=== PATIENT | male | born 1945 | race Caucasian/White ===

== ENCOUNTER 2016-10-30 07:19 | Outpatient (CLI) | payer MEDICARE, OTHER ==
[2016-10-30 11:40] LABS: CALCIUM 10.2 mg/dL (8.5-10.3); CREATININE 1.4 mg/dL (0.6-1.2); POTASSIUM 4.4 mmol/L (3.5-5.0)
== END 2016-10-30 07:20 | disposition home or self-care (01) ==
LOC: LAB.F 07:19
PROVIDERS: ATTEND Internal Medicine
DX: I12.9 Hypertensive chronic kidney disease with stage 1 through stage 4 chronic kidney disease, or unspecified chronic kidney disease (principal); E66.9 Obesity, unspecified; M25.562 Pain in left knee; Z12.11 Encounter for screening for malignant neoplasm of colon
CPT/HCPCS: 36415; 80048; 82043; 82570

== ENCOUNTER 2017-11-10 07:19 | Outpatient (CLI) | payer MEDICARE, OTHER | END 2017-11-10 07:20 | disposition home or self-care (01) | LOC: LAB.F 07:19 | PROVIDERS: ATTEND Internal Medicine | DX: Z00.00 Encounter for general adult medical examination without abnormal findings (principal); N18.3 Chronic kidney disease, stage 3 (moderate); R73.01 Impaired fasting glucose; E66.9 Obesity, unspecified; I10 Essential (primary) hypertension; Z12.11 Encounter for screening for malignant neoplasm of colon | CPT/HCPCS: 82270 ==

== ENCOUNTER 2018-05-21 08:44 | Day surgery (SDC) | payer MEDICARE, OTHER ==
[~2018-05-21 08:44] MED LIST: BRIMONIDINE 0.2% OPHTH DROPS 5 ML ONE; BSS/LIDOCAINE/EPINEPHRINE 1 ML SYRINGE ONE; CYCLOPENTOLATE 1% OPHTH DROPS 2 ML ONE; KETOROLAC 0.45% OPHTH DROPS ONE; PHENYLEPHRINE 2.5% OPHTH 2 ML DROPS ONE; PROPARACAINE 0.5% OPHTH DROPS 15 ML ONE; TIMOLOL 0.5% OPHTH DROPS ONE; TRIAMCIN/MOXIFLOX OPHTHALMIC 0.6 ML VIAL IO ONE; VANCOMYCIN OPHTHALMI 8MG/0.8ML 8 MG/0.8 ML SYRINGE IO ONE
[2018-05-21] MEDS ORDERED: CYCLOPENTOLATE 1% OPHTH DROPS 2 ML RIGHTEYE ONE (09:10)
[2018-05-21] MEDS ORDERED: PROPARACAINE 0.5% OPHTH DROPS 15 ML RIGHTEYE ONE (09:10)
[2018-05-21] MEDS ORDERED: KETOROLAC 0.45% OPHTH DROPS RIGHTEYE ONE (09:10)
[2018-05-21] MEDS ORDERED: PHENYLEPHRINE 2.5% OPHTH 2 ML DROPS RIGHTEYE ONE (09:10)
[2018-05-21] MEDS ORDERED: LACTATED RINGERS 500 ML IV ONE (09:17)
--- NOTE | 2018-05-21 09:35 | ANESTHESIA ---
Pre-Anesthesia VS, & Labs - Diagnosis nuclear sclerotic cataract right eye - Procedure cataract extraction with probable intraocular lens implant right eye Vital Signs: Temp Pulse Resp BP Pulse Ox 36.6 C 79 18 136/70 H 100 05/21/18 08:56 05/21/18 08:56 05/21/18 08:56 05/21/18 08:56 05/21/18 08:56 Height 5 ft 7 in Weight (kg) 85 kg - NPO >8 hours Last Fluid Intake: Chewed tobacco at 0430 Home Medications and Allergies Lisinopril 5 mg PO DAILY 08/14/13 Allergies/Adverse Reactions: Allergies Allergy/AdvReac Type Severity Reaction Status Date / Time No Known Drug Allergies Allergy Verified 08/14/13 18:09 Anes History & Medical History - Anesthetic History Family history of Anesthesia Complications: Denies Family history of Malignant Hyperthermia: Denies - Medical History Cardiovascular: reports: Hypertension Pulmonary: reports: None Gastrointestinal: reports: None Urinary: reports: None, Kidney stones (history of kidney stones) Neuro: reports: None Musculoskeletal: reports: None Endocrine/Autoimmune: reports: None Skin: reports: None Smoking Status: Former smoker (quit 5 years ago) Psychosocial: reports: Other (uses chewing tobacco) Exam General: Alert, Oriented x3, Cooperative, No acute distress Dental: Dentures full Upper Mouth Openin Fingerbreadth Neck Mobility: Normal Mallampati classification: II Thyromental Distance: less than 4 cm Respiratory: Lungs clear, Normal breath sounds, No respiratory distress, No accessory muscle use Cardiovascular: Other (Irregular, no murmurs. ECG shows SR with frequent PVC) Mental/Cognitive Status: Alert/Oriented X3, Normal for patient Plan Anesthesia Type: MAC Consent for Procedure(s) Verified and Reviewed: Yes Code Status: Attempt Resuscitation ASA classification: 2-Mild systemic disease Is this case an emergency?: No
[2018-05-21] MEDS ORDERED: MIDAZOLAM 2 MG/2 ML VIAL IVP ONE (10:11)
[2018-05-21] MEDS ORDERED: BRIMONIDINE 0.2% OPHTH DROPS 5 ML OPTH ONE (10:14)
[2018-05-21] MEDS ORDERED: TIMOLOL 0.5% OPHTH DROPS OPTH ONE (10:14)
[2018-05-21] MEDS ORDERED: CHONDR SULF/HYALURONATE SYRINGE IO ONE (10:14)
[2018-05-21] MEDS ORDERED: EPINEPHrine 1 MG/ML AMP IVP ONE (10:14)
[2018-05-21] MEDS ORDERED: BSS/LIDOCAINE/EPINEPHRINE 1 ML SYRINGE IO ONE (10:15)
[2018-05-21] MEDS ORDERED: VANCOMYCIN OPHTHALMI 8MG/0.8ML 8 MG/0.8 ML SYRINGE IO ONE (10:15)
[2018-05-21] MEDS ORDERED: TRIAMCIN/MOXIFLOX OPHTHALMIC 0.6 ML VIAL IO ONE (10:15)
[2018-05-21 10:40] VITALS: BP 135/74
--- NOTE | 2018-05-21 12:01 | OPERATIVE REPORT ---
DATE OF SERVICE: 05/21/2018 Physician: Sunny Whitt MD PREOPERATIVE DIAGNOSIS: Visually significant cataract, right eye. This was his first cataract surge ry. POSTOPERATIVE DIAGNOSIS: Visually significant cataract, right eye. This was his first cataract surg tori. NAME OF PROCEDURE: Phacoemulsification with posterior chamber intraocular lens implant, right eye. SURGEON: Sunny Whitt MD ANESTHESIA: Monitored anesthesia care. COMPLICATIONS: None. OPERATIVE INDICATIONS: This is a 72-year-old man with progressive vision loss in the right eye due t o 3+ nuclear sclerotic cataract. Best corrected visual acuity was 20/60, with glare to 20/80. Indic ations for surgery were difficulty seeing words, closed captions or game scores on TV, difficulty kimberly ding, difficulty driving in low light or at night, difficulty driving at night because of headlights from other vehicles, and difficulty with glare or bright lights in any situation. He was consented a t length concerning risks and benefits of cataract surgery, after which he expressed a desire to proc eed with surgery. OPERATIVE PROCEDURE: The patient was taken to OR #3, and placed under monitored anesthesia care. A surgical timeout was conducted confirming correct patient, correct procedure and correct surgical sit e. He was given topical anesthesia and prepped and draped in usual sterile fashion. The eye was ent ered at the 12 and 9 o'clock positions. Intracameral Shugarcaine was injected into the anterior jeet kala, followed by Viscoat. A continuous-tear curvilinear capsulorrhexis was performed. The nucleus w as hydrodissected and phacoemulsified. The cortex was evacuated using automated infusion and aspirat ion. Provisc was injected in the capsular bag, and a 21.5 diopter intraocular lens inserted in the b ag. Approximately 0.8 mL of a mixture of triamcinolone, moxifloxacin and vancomycin was injected sub conjunctivally in the superior quadrant for infection and inflammation prophylaxis. I and A was used to evacuate the viscoelastic materials. The eye was inflated to physiologic pressure using balanced salt solution, and found to be watertight. The patient was taken from the operating room in good co ndition and given postop instructions. TD: 05/21/2018 10:41
== END 2018-05-21 08:45 | disposition home or self-care (01) ==
LOC: SDS 08:44
PROVIDERS: ATTEND Ophthalmology
PROC: 08RJ3JZ Replacement of Right Lens with Synthetic Substitute, Percutaneous Approach (ICD-10-PCS; principal; 2018-05-21 10:00)
DX: H25.11 Age-related nuclear cataract, right eye (principal); I10 Essential (primary) hypertension; F17.220 Nicotine dependence, chewing tobacco, uncomplicated; Z87.442 Personal history of urinary calculi
CPT/HCPCS: 66984; A9270; J3490; V2632

== ENCOUNTER 2019-01-19 07:48 | Outpatient (CLI) | payer MEDICARE, OTHER ==
[2019-01-19 10:19] LABS: BUN - BLOOD UREA NITROGEN 21 mg/dL (6-20); CALCIUM 9.7 mg/dL (8.5-10.3); CARBON DIOXIDE - CO2 26 mmol/L (21-32); CHLORIDE 106 mmol/L (101-111); CHOLESTEROL 175 mg/dL; CREATININE 1.4 mg/dL (0.6-1.2); GFR - MDRD 50 (>89); GLUCOSE 108 mg/dL (70-100); HDL CHOLESTEROL 35 mg/dL; LDL CHOLESTEROL,CALCULATED 117 mg/dL; LDL/HDL RATIO 3.3 (<3.6); SODIUM 139 mmol/L (135-145); VLDL CHOLESTEROL 23 mg/dL
[2019-01-20 11:40] LABS: HEPATITIS C ANTIBODY NON-REACTIVE (NON-REACTIVE)
== END 2019-01-19 07:49 | disposition home or self-care (01) ==
LOC: LAB.S 07:48
PROVIDERS: ATTEND Internal Medicine
DX: Z00.00 Encounter for general adult medical examination without abnormal findings (principal); I12.9 Hypertensive chronic kidney disease with stage 1 through stage 4 chronic kidney disease, or unspecified chronic kidney disease; N18.3 Chronic kidney disease, stage 3 (moderate); R73.01 Impaired fasting glucose; E66.9 Obesity, unspecified; Z11.59 Encounter for screening for other viral diseases; Z13.6 Encounter for screening for cardiovascular disorders
CPT/HCPCS: 36415; 80048; 80061; 83721; 86803

== ENCOUNTER 2020-01-03 08:02 | Outpatient (CLI) | payer MEDICARE, OTHER ==
[2020-01-03 15:34] LABS: CALCIUM 10.2 mg/dL (8.5-10.3); CREATININE 1.2 mg/dL (0.6-1.2)
== END 2020-01-03 08:03 | disposition home or self-care (01) ==
LOC: LAB.S 08:02
PROVIDERS: ATTEND Internal Medicine
DX: Z00.00 Encounter for general adult medical examination without abnormal findings (principal); I12.9 Hypertensive chronic kidney disease with stage 1 through stage 4 chronic kidney disease, or unspecified chronic kidney disease; N18.30 Chronic kidney disease, stage 3 unspecified; R73.01 Impaired fasting glucose
CPT/HCPCS: 36415; 80048

== ENCOUNTER 2020-03-20 17:14 | Outpatient (CLI) | payer MEDICARE | END 2020-03-20 17:15 | disposition home or self-care (01) | LOC: COV 17:14 | PROVIDERS: ATTEND Ophthalmology | DX: Z01.812 Encounter for preprocedural laboratory examination (principal); Z20.822 Contact with and (suspected) exposure to COVID-19; H25.12 Age-related nuclear cataract, left eye ==

== ENCOUNTER 2020-03-23 08:54 | Day surgery (SDC) | payer MEDICARE ==
[~2020-03-23 08:54] MED LIST changes: -BRIMONIDINE 0.2% OPHTH DROPS 5 ML ONE; -BSS/LIDOCAINE/EPINEPHRINE 1 ML SYRINGE ONE; -CYCLOPENTOLATE 1% OPHTH DROPS 2 ML ONE; -TIMOLOL 0.5% OPHTH DROPS ONE; -TRIAMCIN/MOXIFLOX OPHTHALMIC 0.6 ML VIAL IO ONE; -VANCOMYCIN OPHTHALMI 8MG/0.8ML 8 MG/0.8 ML SYRINGE IO ONE
[2020-03-23] MEDS ORDERED: LACTATED RINGERS 500 ML IV ONE (09:13)
--- NOTE | 2020-03-23 09:25 | ANESTHESIA ---
Pre-Anesthesia VS, & Labs - Diagnosis left eye nuclear sclerotic cataract - Procedure Left eye cataract extraction with IOL implant Vital Signs: Temp Pulse Resp BP Pulse Ox 37 C 85 16 129/75 100 03/23/20 09:03 03/23/20 09:03 03/23/20 09:03 03/23/20 09:03 03/23/20 09:03 Height: 5 ft 8 in Weight (kg): 78.2 kg Body Mass Index: 26.2 BMI Classification: Overweight - NPO >8 hours Home Medications and Allergies NONE Allergies/Adverse Reactions: Allergies Allergy/AdvReac Type Severity Reaction Status Date / Time No Known Drug Allergies Allergy Verified 08/14/13 18:09 Anes History & Medical History - Medical History Cardiovascular: reports: Hypertension, Other (irregular, hx of pvc) Pulmonary: reports: None Gastrointestinal: reports: None Urinary: reports: None, Kidney stones Neuro: reports: None Musculoskeletal: reports: None Endocrine/Autoimmune: reports: None Skin: reports: None Smoking Status: Former smoker (quit 5 years ago. Chews tobacco) Psychosocial: reports: No issues indicated History of Cancer?: No - Surgical History Eyes Ears Nose Throat (EENT): Cataracts Exam General: Alert, Oriented x3, Cooperative, No acute distress, Other (hard of hearing) Dental: Dentures full Upper Mouth Openin Fingerbreadth Neck Mobility: Normal Mallampati classification: III Thyromental Distance: 4-6 cm Mental/Cognitive Status: Alert/Oriented X3, Normal for patient Plan Anesthesia Type: MAC Consent for Procedure(s) Verified and Reviewed: Yes Code Status: Attempt Resuscitation ASA classification: 2-Mild systemic disease Is this case an emergency?: No
[2020-03-23] MEDS ORDERED: MIDAZOLAM 2 MG/2 ML VIAL ONE (10:34)
[2020-03-23] MEDS ORDERED: BRIMONIDINE 0.2% OPHTH DROPS 5 ML OPTH ONE (10:43)
[2020-03-23] MEDS ORDERED: EPINEPHrine 1 MG/ML AMP IR ONE (10:43)
[2020-03-23] MEDS ORDERED: TRIAMCIN/MOXIFLOX OPHTHALMIC 0.6 ML VIAL IO ONE ×2 (10:44→13:27)
[2020-03-23] MEDS ORDERED: VANCOMYCIN OPHTHALMI 8MG/0.8ML 8 MG/0.8 ML SYRINGE IO ONE ×2 (10:44→13:27)
[2020-03-23] MEDS ORDERED: BSS/LIDOCAINE/EPINEPHRINE 1 ML SYRINGE IO ONE (10:44)
[2020-03-23] MEDS ORDERED: TIMOLOL 0.5% OPHTH DROPS OPTH ONE (10:44)
[2020-03-23] MEDS ORDERED: CHONDR SULF/HYALURONATE SYRINGE IO ONE (10:44)
[2020-03-23] MEDS ORDERED: PROPARACAINE 0.5% OPHTH DROPS 15 ML EACHEYE ONE (10:44)
[2020-03-23] MEDS ORDERED: LACTATED RINGERS 400 ML IV ONE (10:55)
[2020-03-23 10:58] VITALS: BP 128/86
--- NOTE | 2020-03-23 11:08 | ANESTHESIA POST OP EVALUATION ---
Anesthesia Post Eval - Post Anesthesia Eval Vitals: Last Vital Signs Temp 36.8 C 03/23/20 10:57 Pulse 81 03/23/20 10:57 Resp 16 03/23/20 10:57 BP 128/86 H 03/23/20 10:57 Pulse Ox 100 03/23/20 10:57 CV Function Including HR & BP: positive: Stable Pain Control: positive: Satisfactory Nausea & Vomiting: positive: Negative Mental Status: positive: Patient Participates Respiratory Status: Airway Patent Hydration Status: Satisfactory Anesthesia Complications: positive: None
[2020-03-23] MEDS ORDERED: KETOROLAC 15 MG/ML VIAL ONE (11:10)
--- NOTE | 2020-03-23 11:13 | OPERATIVE REPORT ---
DATE OF SERVICE: 03/23/2020 Physician: Sunny Whitt MD PREOPERATIVE DIAGNOSIS: Visually significant cataract, left eye. Cataract surgery was performed on his right eye on 05/21/2018. POSTOPERATIVE DIAGNOSIS: Visually significant cataract, left eye. Cataract surgery was performed on his right eye on 05/21/2018. PROCEDURE: Phacoemulsification with posterior chamber intraocular lens implant, left eye. SURGEON: Sunny Whitt MD. ANESTHESIA: Monitored anesthesia care. COMPLICATIONS: None. OPERATIVE INDICATIONS: This is a 74-year-old man with progressive vision loss in the left eye due to 3+ to 4+ nuclear sclerotic and vacuolar cataract. Best corrected visual acuity was 20/40 with glare to hand motion vision in the left eye. Indications for surgery are overall decrease in vision, diff iculty reading, and difficulty driving in low light or at night. He was consented at length concerni ng risks and benefits of cataract surgery, after which he expressed a desire to proceed with surgery. OPERATIVE PROCEDURE: The patient was taken in to OR #3 and placed under monitored anesthesia care. A surgical timeout was conducted, confirming correct patient, correct procedure, and correct surgical site. He was given topical anesthesia and prepped and draped in usual sterile fashion. The eye was entered at the 6 and 3 o'clock positions. Intracameral Shugarcaine was injected into the anterior c hamber followed by Viscoat. A continuous-tear curvilinear capsulorrhexis was performed. The nucleus was hydrodissected and phacoemulsified. The cortex was evacuated using automated infusion and aspir ation. Provisc was injected in the capsular bag and a 21.5 diopter intraocular lens inserted into th e bag. Infusion and aspiration were used to evacuate the viscoelastic materials. The eye was inflat ed to physiologic pressure using balanced salt solution and found to be watertight. Approximately 0. 25 mL of a mixture of triamcinolone and moxifloxacin was injected transsclerally into the vitreous in the inferotemporal quadrant. An additional 0.55 mL of a mixture of triamcinolone, moxifloxacin, and vancomycin was injected subconjunctivally in the superior quadrant for infection and inflammation pr ophylaxis. Wound integrity was checked with Weck-Manuela sponges. The patient was taken from the operat ing room in good condition and given postoperative instructions. TD: 03/23/2020 11:05
[2020-03-23] MEDS ORDERED: BSS/LIDOCAINE/EPINEPHRINE 1 ML SYRINGE ONE (13:27)
[2020-03-23] MEDS ORDERED: BRIMONIDINE 0.2% OPHTH DROPS 5 ML ONE (13:27)
[2020-03-23] MEDS ORDERED: TIMOLOL 0.5% OPHTH DROPS ONE (13:27)
[2020-03-23] MEDS ORDERED: EPINEPHrine 1 MG/ML AMP ONE (13:27)
== END 2020-03-23 08:55 | disposition home or self-care (01) ==
LOC: SDS 08:54
PROVIDERS: ATTEND Ophthalmology
DX: H25.12 Age-related nuclear cataract, left eye (principal); I10 Essential (primary) hypertension; Z98.41 Cataract extraction status, right eye; E66.3 Overweight; Z68.26 Body mass index [BMI] 26.0-26.9, adult; F17.220 Nicotine dependence, chewing tobacco, uncomplicated
CPT/HCPCS: 66984; A9270; J3490; J7120; V2632